=== PATIENT | female | born 1990 | race Caucasian/White ===

== ENCOUNTER 2023-05-31 06:28 | Emergency (ER) | payer MEDICAID, OTHER ==
[~2023-05-31] VITALS: Ht 172.7 cm; Wt 81.0 kg
[~2023-05-31 06:28] MED LIST: LEVO750T68 MT; xarelto PO
[2023-05-31 06:31] VITALS: O2SAT 99
[2023-05-31 07:04] VITALS: TEMP 98.1
[2023-05-31] MEDS ORDERED: PSEUDOEPHEDRINE HCL 30MG TABLET PO STA (07:05)
[2023-05-31 08:12] VITALS: BP 128/68; PULSE 72; RESP 20
== END 2023-05-31 08:14 | disposition home or self-care (01) ==
LOC: ER 06:28
DX: R51.9 Headache, unspecified (principal); E11.9 Type 2 diabetes mellitus without complications
CPT/HCPCS: 99283; Z7610 ×2

== ENCOUNTER 2024-07-16 23:05 | Emergency (ER) | payer OTHER ==
[~2024-07-16] VITALS: Ht 165.1 cm; Wt 109.0 kg
[2024-07-16 23:16] VITALS: TEMP 98.2; O2SAT 99
[2024-07-17 00:15] LABS: BASOPHILS % 0.5 % (0.0-2.0); EOSINOPHILS % 3.1 % (0.0-5.0); HEMATOCRIT. 33.6 % (36.0-48.0); HEMOGLOBIN. 10.4 g/dL (12.0-16.0); LYMPHOCYTES % 23.9 % (20.0-50.0); MEAN CORPUSCULAR HEMOGLOBIN 21.4 pg (28.0-32.0); MEAN CORPUSCULAR HGB CONC 30.8 g/dL (31.0-37.0); MEAN CORPUSCULAR VOLUME 69.5 fL (81.0-99.0); MEAN PLATELET VOLUME 8.6 fl (7.4-10.4); MONOCYTES % 5.6 % (2.0-8.0); NEUTROPHILS % 66.9 % (40.0-76.0); PLATELET 137 x1000/uL (130-400); RED BLOOD CELL COUNT 4.84 mill/uL (4.2-5.4); RED CELL DISTRIBUTION WIDTH 23.1 % (11.6-14.6)
[2024-07-17 00:19] LABS: DIFFERENTIAL COMMENT 1
[2024-07-17 00:20] LABS: ADD RBC MORPHOLOGY YES
[2024-07-17 00:23] LABS: CALCIUM 9.3 mg/dL (8.7-10.4); POTASSIUM 3.8 mEq/L (3.5-5.1)
[2024-07-17 00:28] LABS: CREATININE 1.1 mg/dL (0.6-1.0)
[2024-07-17] MEDS: LEVETIRACETAM 1000MG PREMIX 100 ML IV ONE (00:37)
[2024-07-17] MEDS: ACETAMINOPHEN 325MG TABLET PO ONE (00:40)
[2024-07-17] MEDS ORDERED: KEPP500 MT (02:32)
[2024-07-17 03:14] VITALS: BP 107/65; PULSE 87; RESP 18; O2SAT 98
[2024-07-17 04:43] LABS: HYPOCHROMASIA 1+; PLATELET ESTIMATE NORMAL
[2024-07-17 04:44] LABS: MICROCYTOSIS 2+
== END 2024-07-17 03:16 | disposition home or self-care (01) ==
LOC: ER 23:05
DX: R56.9 Unspecified convulsions (principal); E11.9 Type 2 diabetes mellitus without complications; Z86.73 Personal history of transient ischemic attack (TIA), and cerebral infarction without residual deficits; Z79.01 Long term (current) use of anticoagulants; Z86.718 Personal history of other venous thrombosis and embolism
CPT/HCPCS: 80048; 85025; 36415; 70450; 93970; 93005; 99285; 96365; Z7610 ×4; J1953

== ENCOUNTER 2024-09-07 17:08 | Emergency (ER) | payer OTHER ==
[~2024-09-07] VITALS: Ht 165.1 cm; Wt 104.0 kg
[~2024-09-07 17:08] MED LIST changes: +KEPP500 MT
[2024-09-07 17:11] VITALS: O2SAT 99
[2024-09-07] MEDS ORDERED: LEVETIRACETAM 1000MG PREMIX 100 ML IV STA (17:57)
[2024-09-07 18:14] LABS: BASOPHILS % 0.7 % (0.0-2.0); EOSINOPHILS % 2.4 % (0.0-5.0); LYMPHOCYTES % 21.1 % (20.0-50.0); MEAN CORPUSCULAR HEMOGLOBIN 20.6 pg (28.0-32.0); MEAN CORPUSCULAR HGB CONC 30.8 g/dL (31.0-37.0); MEAN CORPUSCULAR VOLUME 66.8 fL (81.0-99.0); MEAN PLATELET VOLUME 8.9 fl (7.4-10.4); MONOCYTES % 6.3 % (2.0-8.0); NEUTROPHILS % 69.5 % (40.0-76.0); PLATELET 132 x1000/uL (130-400); RED BLOOD CELL COUNT 4.35 mill/uL (4.2-5.4); WHITE BLOOD COUNT 7.4 x1000/uL (4.5-11.0)
[2024-09-07 18:15] LABS: ADD RBC MORPHOLOGY YES; DIFFERENTIAL COMMENT 1
[2024-09-07 18:20] LABS: CHLORIDE 105 mEq/L (98-107); POTASSIUM 4.3 mEq/L (3.5-5.1); SODIUM 137 mEq/L (136-145)
[2024-09-07 18:21] LABS: CALCIUM 8.8 mg/dL (8.7-10.4); CARBON DIOXIDE 26 mEq/L (21-32)
[2024-09-07 18:22] LABS: PROTHROMBIN TIME 10.8 sec (9.6-11.0)
[2024-09-07 18:23] VITALS: TEMP 36.89184
[2024-09-07 18:26] LABS: ANISOCYTOSIS 1+; CREATININE 0.9 mg/dL (0.6-1.0); GLUCOSE 105 mg/dL (70-105); MICROCYTOSIS 3+; PLATELET ESTIMATE SLIGHTLY DECREASED; UREA NITROGEN BLOOD 12 mg/dL (9-23)
[2024-09-07 18:27] LABS: HYPOCHROMASIA 3+
[2024-09-07 18:29] LABS: ETHANOL BLOOD < 10 mg/dL (<10); GIANT PLATELETS 1+; HCG SCREEN NEGATIVE; OVALOCYTES 1+; TROPONIN I HIGH SENSITIVITY < 4 ng/L (3.0-34)
[2024-09-07] MEDS: LEVETIRACETAM 1000MG PREMIX 100 ML IV SCH ×2 (19:03)
[2024-09-07 20:27] LABS: ALANINE AMINOTRANSFERASE 13 IU/L (10-49); ALBUMIN 4.1 g/dL (3.2-4.8); ASPARTATE AMINOTRANSFERASE 24 IU/L (<34); BILIRUBIN TOTAL 0.2 mg/dL (0.1-1.0); PROTEIN TOTAL 6.8 g/dL (6.0-8.3)
[2024-09-07 20:30] LABS: BILIRUBIN DIRECT < 0.1 mg/dL (<=3.0)
[2024-09-07 21:26] LABS: CLARITY URINE CLEAR (CLEAR); COLOR URINE YELLOW (YELLOW); GLUCOSE URINE NEGATIVE (NEGATIVE); KETONES URINE NEGATIVE (NEGATIVE); LEUKOCYTE ESTERASE URINE 1+ (NEGATIVE); NITRITE URINE NEGATIVE (NEGATIVE); OCCULT BLOOD URINE NEGATIVE (NEGATIVE); PH URINE 7.5 (4.5-8.0); PROTEIN URINE NEGATIVE (NEGATIVE); SPECIFIC GRAVITY URINE 1.036 (1.005-1.030); UROBILINOGEN URINE 0.2 E.U./dL (0.2-1.0)
[2024-09-07 21:39] LABS: BACTERIA URINE TRACE; RBC URINE NONE SEEN /hpf (0-2); SQUAMOUS EPITHELIAL CELL URINE FEW /lpf (RARE/1+)
[2024-09-07 21:43] LABS: *AMPHETAMINES SCREEN URINE NEGATIVE (NEGATIVE); *BARBITURATES SCREEN URINE NEGATIVE (NEGATIVE); *BENZODIAZEPINES SCREEN URINE NEGATIVE (NEGATIVE); *COCAINE SCREEN URINE NEGATIVE (NEGATIVE); METHADONE URINE SCREEN NEGATIVE (NEGATIVE); OPIATES URINE SCREEN NEGATIVE (NEGATIVE); PHENCYCLIDINE URINE SCREEN NEGATIVE (NEGATIVE)
[2024-09-07 21:44] LABS: CANNABINOID URINE SCREEN NEGATIVE (NEGATIVE); ECSTASY MDMA SCREEN URINE NEGATIVE (NEGATIVE)
[2024-09-07] MEDS ORDERED: LEVE1000 MT (21:44)
[2024-09-07] MEDS ORDERED: NITR-87 MT (21:44)
[2024-09-07] MEDS ORDERED: FERR1TAB91 MT (21:46)
[2024-09-07] MEDS: APIXABAN 5 MG TABLET PO STA (21:59)
[2024-09-07 22:30] VITALS: BP 127/68; PULSE 98; RESP 17; O2SAT 100
[2024-09-07] MEDS ORDERED: IOHEXOL-350 100 ML BOTTLE ONE (23:11)
== END 2024-09-07 22:30 | disposition home or self-care (01) ==
LOC: ER 17:08
DX: G40.909 Epilepsy, unspecified, not intractable, without status epilepticus (principal); R41.82 Altered mental status, unspecified; Z86.73 Personal history of transient ischemic attack (TIA), and cerebral infarction without residual deficits; Z86.718 Personal history of other venous thrombosis and embolism
CPT/HCPCS: 80076; 80305; 80048; 81003; 80320; 84703; 83880; 83605; 83690; 85025; 85610; 87040; 84484; 36415; 84145; 71045; 70496; 70498; 70450; 96365; 99291; 82542; Q9967; J1953; G0480